=== PATIENT | female | born 1965 | race Caucasian/White ===

== ENCOUNTER → 2018-06-01 | Outpatient (CLI) | payer MEDICARE, BC ==
[2015-03-13 16:20] VITALS: BP 151/89
[~2018-06-01] MED LIST: ACET500T68 PO; ALBU2.5V14 NEB; ALBU6.7H IH; ALPR0.5T PO; ALPR1TAB2 PO; AMIT50TA PO; BUTA-14 PO; CHOL500045 PO; D-ME118S2 PO; ESTR0.5T PO; HYDR25TA9 PO; IBUP600T16 PO; LEVO50TA5 PO; LIDO700A4 TP; MOME17SP NS; OLME1TAB25 PO; PREG75CA PO; TRAM50TA PO; [UNRECOGNIZED DRUG - OTHER]
--- NOTE | 2018-06-02 10:47 | RAD ---
DATE: 06/01/2018 EXAM: MAMMO HIEU SCREENING BILATERAL HISTORY: Routine screening COMPARISON: 04/23/2016 This study was interpreted with the benefit of Computerized Aided Detection (CAD). Breast Density: SCATTERED The breast parenchyma shows scattered fibroglandular densities. Breast parenchyma level B. FINDINGS: 2-D and 3-D tomosynthesis imaging was performed in CC and MLO projections. No new or enlarging breast densities are seen. No suspicious microcalcifications are evident. IMPRESSION: Stable mammograms without evidence of malignancy. BI-RADS CATEGORY: 1 NEGATIVE RECOMMENDED FOLLOW-UP: 12M 12 MONTH FOLLOW-UP PQRS compliance statement: Patient information was entered into a reminder system with a target due date for the next mammogram. Mammography is a sensitive method for finding small breast cancers, but it does not detect them all and is not a substitute for careful clinical examination. A negative mammogram does not negate a clinically suspicious finding and should not result in delay in biopsying a clinically suspicious abnormality. "Our facility is accredited by the [employer] Mammography Program."
== END | disposition home or self-care (01) ==
LOC: MAMMO 14:20
PROVIDERS: ATTEND Family Medicine
DX: Z12.31 Encounter for screening mammogram for malignant neoplasm of breast (principal)
CPT/HCPCS: 77063; 77067

== ENCOUNTER → 2019-05-23 | Outpatient (CLI) | payer MEDICARE, BC ==
[2015-03-13 16:20] VITALS: BP 151/89
[~2019-05-23] MED LIST changes: +ALBU2.5V8 IH; -ALBU6.7H IH; -D-ME118S2 PO; +HYDR-2145 PO; -HYDR25TA9 PO; +PROM118S9 PO
--- NOTE | 2019-05-23 17:15 | RAD ---
EXAM: Abdomen and pelvis CT without intravenous contrast. HISTORY: Flank pain. TECHNIQUE: Computed tomographic images of the abdomen and pelvis were obtained without contrast. Multiplanar reformatting was performed. *One or more of the following individualized dose reduction techniques were utilized for this examination: 1. Automated exposure control. 2. Adjustment of the mA and/or kV according to patient size. 3. Use of iterative reconstruction technique. COMPARISON: 10/09/2013. FINDINGS: Evaluation of the lower thorax demonstrates posterior dependent and basilar atelectasis. There is no infiltrate or pleural effusion. The heart is normal in size. There is hepatomegaly and hepatic steatosis. No focal hepatic lesion is seen on this noncontrast exam. The gallbladder is surgically absent. The pancreas is unremarkable. The spleen is mildly enlarged. The adrenal glands are unremarkable. There are small suspected left renal parapelvic cysts. There is no hydronephrosis or evidence of nephroureterolithiasis. The bladder is empty. The uterus is surgically absent. There is no appendicitis. There is no bowel obstruction. There is a 1.4 cm soft tissue nodule with slight surrounding fatty stranding within the left lower quadrant adjacent to the descending-sigmoid colon junction. There is no adjacent colonic wall thickening. This may be due to the sequela of prior epiploic appendagitis or fat infarction. There is no suspicious osseous lesion. There are mild chronic compression deformities involving the lower thoracic vertebral levels. There is no acute osseous finding. IMPRESSION: 1. No evidence of nephroureterolithiasis or obstructive uropathy. There are small suspected left renal parapelvic cysts. 2. Hepatomegaly and hepatic steatosis. There is also mild enlargement of the spleen which may be within normal limits for patient body habitus. 3. 1.4 cm soft tissue nodule adjacent to the descending-sigmoid colon junction, possibly due to the sequela of prior epiploic appendagitis or fat infarction. There is no adjacent colonic wall thickening. The imaging appearance does not favor a lymph node. Electronically signed by: Sheyla Hernandez MD (05/23/2019 5:12 PM) [place] [id number]
== END | disposition home or self-care (01) ==
LOC: CT 16:41
PROVIDERS: ATTEND Family Medicine
DX: K76.0 Fatty (change of) liver, not elsewhere classified (principal); R16.1 Splenomegaly, not elsewhere classified; N94.89 Other specified conditions associated with female genital organs and menstrual cycle; K76.89 Other specified diseases of liver; J98.11 Atelectasis; M43.8X4 Other specified deforming dorsopathies, thoracic region; M54.5 Low back pain
CPT/HCPCS: 74176

== ENCOUNTER 2020-07-09 21:43 | Inpatient (IN) | payer MEDICARE, BC ==
[~2020-07-09] VITALS: Ht 160 cm; Wt 130.9 kg
[~2020-07-09 21:43] MED LIST changes: +PROM118S10 PO; -PROM118S9 PO
[2020-07-09 22:28] LABS: BASO % 0 % (0-3); EOS % 0 % (0-3); HEMOGLOBIN 13.5 g/dL (12.0-15.5); LYMPH # 0.6 x10^3/uL (1.0-4.8); LYMPH % 6 % (24-48); MEAN CORPUSCULAR HEMOGLOBIN 32 pg (25-35); MEAN CORPUSCULAR HGB CONC 34 g/dL (31-37); MEAN CORPUSCULAR VOLUME 94 fL (79-100); MONO # 0.4 x10^3/uL (0.0-1.1); MONO % 4 % (0-9); NEUT # 8.6 x10^3uL (1.8-7.7); NEUT % 90 % (31-73); PLATELET COUNT 221 x10^3/uL (140-400); RED BLOOD COUNT 4.28 x10^6/uL (3.50-5.40); RED CELL DISTRIBUTION WIDTH 13.3 % (11.5-14.5); WHITE BLOOD COUNT 9.5 x10^3/uL (4.0-11.0)
[2020-07-09] MEDS ORDERED: LORazepam 1 MG TABLET PO ONE (22:30)
[2020-07-09] MEDS ORDERED: IBUPROFEN 600 MG TABLET. PO ONE (22:30)
[2020-07-09] MEDS ORDERED: DEXAMETHASONE SOD PHOS 10 MG/ML VIAL. IV ONE (22:30)
--- NOTE | 2020-07-09 22:40 | RAD ---
Exam: Chest one view INDICATION: Shortness of breath TECHNIQUE: Frontal view of the chest Comparisons: None FINDINGS: The cardiomediastinal silhouette and pulmonary vessels are within normal limits. Patchy bilateral airspace disease. No pleural effusion. IMPRESSION: Patchy bilateral airspace disease may relate to pulmonary edema. Infectious process is difficult to severe Electronically signed by: Missael Kimball MD (07/09/2020 10:37 PM) [facility]
[2020-07-09 22:43] LABS: ALBUMIN 2.9 g/dL (3.4-5.0); ALBUMIN/GLOBULIN RATIO 0.6 (1.0-1.7); CALCIUM 8.9 mg/dL (8.5-10.1); TOTAL BILIRUBIN 0.2 mg/dL (0.2-1.0); TOTAL PROTEIN 7.6 g/dL (6.4-8.2)
[2020-07-09 22:47] LABS: POTASSIUM 2.8 mmol/L (3.5-5.1)
[2020-07-09] MEDS ORDERED: guaiFENesin/CODEINE 100mg/10mg 5 ML LIQUID PO PRN (23:15)
[2020-07-09] MEDS ORDERED: IV NORMAL SALINE 50ML 50 ML ONE (23:39)
[2020-07-09] MEDS ORDERED: cefTRIAXone SODIUM 1 GM VIAL ONE (23:39)
--- NOTE | 2020-07-09 23:43 | PHYS DOC ---
Past History Past Medical History: Anxiety, Asthma, Bipolar, Migraines, Other Past Surgical History: Cholecystectomy, , Hysterectomy, Other Smoking: Non-smoker Alcohol Use: None Drug Use: None Adult General Chief Complaint Chief Complaint: SHORTNESS OF BREATH HPI HPI Patient is a 54-year-old female who presents to the emergency room complaining of severe shortness of breath and weakness. She was diagnosed with Covid last week and felt like she was getting better earlier in the week. She initially had cough and body aches. Over the last couple days she has developed worsening cough and fever. Today she developed weakness and was unable to get to the bathroom. She also felt like she could not breathe. She is having coughing fits but denies any vomiting. Review of Systems Review of Systems Complete ROS is negative unless otherwise documented in HPI Current Medications Current Medications Current Medications Medications (Trade) Dose Ordered Sig/Lobito Start Time Stop Time Status Last Admin Dose Admin Ceftriaxone Sodium 1 gm/ Sodium Chloride 50 ml @ 100 mls/hr 1X ONCE 07/09/20 22:30 07/09/20 22:59 DC Dexamethasone Sodium Phosphate (Decadron) 10 mg 1X ONCE 07/09/20 22:30 07/09/20 22:31 DC Guaifenesin (Robitussin) 300 mg 1X ONCE 07/09/20 23:45 07/09/20 23:46 UNV Guaifenesin/ Codeine Phosphate (Robitussin Ac) 5 ml PRN Q6HRS PRN 07/09/20 23:15 Ibuprofen (Motrin) 600 mg 1X ONCE 07/09/20 22:30 07/09/20 22:31 DC Lorazepam (Ativan) 1 mg 1X ONCE 07/09/20 22:30 07/09/20 22:31 DC Allergies Allergies Allergies Coded Allergies Type Severity Reaction Last Updated Verified codeine Allergy Severe Nausea and Vomiting 04/28/14 Yes morphine Allergy Severe Nausea and Vomiting 04/28/14 Yes Oxycodone Allergy Mild 04/28/14 Yes Physical Exam Physical Exam General: Awake, alert, mild distress well Nourished, well hydrated. Cooperative HEENT: Atraumatic, EOMI, PERRL, airway patent, moist oral mucosa Neck: Supple, trachea midline Respiratory: Diffuse crackles, increased work of breathing, tachypnea CV: RRR, no murmur, cap refill <2 GI: Soft, nondistended, nontender, no masses MSK: No obvious deformities Skin: Warm, dry, intact Neuro: A&O x3, speech NL, sensory and motor grossly intact, no focal deficits Psych: Normal affect, normal mood, not suicidal or homicidal Current Patient Data Vital Signs Vital Signs Date Time Temp Pulse Resp B/P (MAP) Pulse Ox O2 Delivery O2 Flow Rate FiO2 07/09/20 21:55 101.5 94 16 136/70 (92) 90 Room Air Lab Results Laboratory Tests Test 07/09/20 22:09 White Blood Count 9.5 x10^3/uL (4.0-11.0) Red Blood Count 4.28 x10^6/uL (3.50-5.40) Hemoglobin 13.5 g/dL (12.0-15.5) Hematocrit 40.0 % (36.0-47.0) Mean Corpuscular Volume 94 fL (79-100) Mean Corpuscular Hemoglobin 32 pg (25-35) Mean Corpuscular Hemoglobin Concent 34 g/dL (31-37) Red Cell Distribution Width 13.3 % (11.5-14.5) Platelet Count 221 x10^3/uL (140-400) Neutrophils (%) (Auto) 90 % (31-73) H Lymphocytes (%) (Auto) 6 % (24-48) L Monocytes (%) (Auto) 4 % (0-9) Eosinophils (%) (Auto) 0 % (0-3) Basophils (%) (Auto) 0 % (0-3) Neutrophils # (Auto) 8.6 x10^3uL (1.8-7.7) H Lymphocytes # (Auto) 0.6 x10^3/uL (1.0-4.8) L Monocytes # (Auto) 0.4 x10^3/uL (0.0-1.1) Eosinophils # (Auto) 0.0 x10^3/uL (0.0-0.7) Basophils # (Auto) 0.0 x10^3/uL (0.0-0.2) Sodium Level 132 mmol/L (136-145) L Potassium Level 2.8 mmol/L (3.5-5.1) *L Chloride Level 95 mmol/L (98-107) L Carbon Dioxide Level 28 mmol/L (21-32) Anion Gap 9 (6-14) Blood Urea Nitrogen 17 mg/dL (7-20) Creatinine 1.0 mg/dL (0.6-1.0) Estimated GFR (Cockcroft-Gault) 58.0 BUN/Creatinine Ratio 17 (6-20) Glucose Level 315 mg/dL (70-99) H Lactic Acid Level 3.1 mmol/L (0.4-2.0) H Calcium Level 8.9 mg/dL (8.5-10.1) Total Bilirubin 0.2 mg/dL (0.2-1.0) Aspartate Amino Transferase (AST) 43 U/L (15-37) H Alanine Aminotransferase (ALT) 80 U/L (14-59) H Alkaline Phosphatase 70 U/L (46-116) Troponin I Quantitative < 0.017 ng/mL (0-0.055) Total Protein 7.6 g/dL (6.4-8.2) Albumin 2.9 g/dL (3.4-5.0) L Albumin/Globulin Ratio 0.6 (1.0-1.7) L EKG EKG [] Radiology/Procedures Radiology/Procedures [] Heart Score Risk Factors: Risk Factors: DM, Current or recent (<one month) smoker, HTN, HLP, family history of CAD, obesity. Risk Scores: Risk Factors: DM, Current or recent (<one month) smoker, HTN, HLP, family history of CAD, obesity. Course & Med Decision Making Course & Med Decision Making Pertinent Labs and Imaging studies reviewed. (See chart for details) Patient is a 54-year-old female who presents to the emergency room with shortness of breath and cough. At this time there is concern for the novel coronavirus 19. Patient's risk factors include age, obesity. Risk stratifying work-up was ordered including chest x-ray, d-dimer, CPK, CRP, LDH, troponin, ferritin, CBC, CMP. At this time, patients labs, vitals, and exam are significant for hypokalemia, mildly elevated LFTs. Due to patient's risk and clinical picture, they will need to be admitted at this time. IVFs will be limited due to concern for fluid overload in COVID-19 patients. Patient will be given empiric antibiotics due to infiltrates and risk of co-bacterial infection. Further treatment will be dictated by the inpatient team. Dragon Disclaimer Dragon Disclaimer This electronic medical record was generated, in whole or in part, using a voice recognition dictation system. Departure Departure: Impression: Primary Impression: COVID-19 Additional Impressions: Respiratory failure Anxiety Hypokalemia Disposition: ADMITTED INPT THIS HOSP Condition: STABLE Referrals: ISAÍAS SARMIENTO MD (PCP) Problem Qualifiers DALILA THORNTON MD Jul 09, 2020 23:43
[2020-07-09] MEDS ORDERED: guaiFENesin 300 MG/15 ML LIQUID PO ONE (23:45)
[2020-07-10] VITALS (9 sets, daily range): BP systolic 93–139; BP diastolic 55–81
[2020-07-10 00:33] LABS: BACTERIA,URINE 0 /HPF (0-FEW); BILIRUBIN,URINE NEG (NEG); CLARITY,URINE CLEAR; COLOR,URINE YELLOW; GLUCOSE,URINE >=1000 mg/dL (NEG); NITRITE,URINE NEG (NEG); RBC,URINE 0 /HPF (0-2); SQUAMOUS EPITHELIAL CELL,UR OCC /LPF; UROBILINOGEN,URINE 0.2 mg/dL (0.2 mg/dL); WBC,URINE OCC /HPF (0-4)
[2020-07-10] MEDS ORDERED: POTASSIUM CHLORIDE 20 MEQ TABLET.ER. PO ONE (09:15)
--- NOTE | 2020-07-10 11:48 | NUR ---
NSG NOTE; ADMISSION ADMIT TO ROOM 120 AT 0950 VIA CART ACCOMP BY EMS PERSONNEL C/O INCREASING SOA, COUGH, HEADACHE, AND WEAKNESS OVER THE LAST TWO DAYS, BUT HAS BEEN SICK X 7 DAYS HAD POSITIVE COVID 19 SWAB DONE ON TUESDAY, JUL 06, 2020. HER TWO DAUGHTERS HAVE ALSO TESTED POSITIVE. DR SARMIENTO CALLED FOR ORDERS.
[2020-07-10] MEDS ORDERED: ALBUTEROL SULFATE 8GM INHALER. INH PRN ×2 (13:15→18:00)
[2020-07-10] MEDS ORDERED: guaiFENesin DM 200MG/20MG 10 ML SYRUP PO PRN (13:15)
[2020-07-10] MEDS ORDERED: ELECTROLYTE (NON-ICU) PROTOCOL. MC PRN (13:15)
[2020-07-10] MEDS ORDERED: AZITHROMYCIN 250 MG TABLET. PO ONE (13:15)
[2020-07-10] MEDS ORDERED: ZOLPIDEM 5 MG TABLET. PO PRN (13:30)
[2020-07-10] MEDS ORDERED: MAG HYDROX/AL HYDROX/SIMETH 30 ML ORAL.SUSP PO PRN (13:30)
[2020-07-10] MEDS: BENZONATATE 100 MG CAPSULE. PO SCH ×2 (14:03→21:20)
[2020-07-10] MEDS: IV 1/2 NORMAL SALINE 1,000 ML IV SCH ×2 (14:03→19:12)
[2020-07-10] MEDS: ACETAMINOPHEN 500 MG TABLET PO PRN ×2 (14:03→19:12)
--- NOTE | 2020-07-10 14:38 | NUR ---
NSG NOTE; INCREASING OXYGEN NEED ON ROUNDS, SPOT O2 SAT OF 88% ON O2 3.5L NC. OXYGEN INCREASED TO 8L HIGH FLOW NC TO KEEP O2 SAT AT 92%
[2020-07-10] MEDS: DEXAMETHASONE SOD PHOS 4 MG/ML VIAL. IVP SCH ×3 (15:06→22:32)
--- NOTE | 2020-07-10 16:18 | NUR ---
NSG NOTE; POSITIVE COVID 19 TEST RESULTS PERFORMED ON 07/05/[address] SARMIENTO'S OFFICE AND ADDED TO PT'S CHART
[2020-07-10] MEDS ORDERED: traMADol 50 MG TABLET PO SCH (17:45)
[2020-07-10] MEDS ORDERED: BUTALB/APAP/CAFEIN 50/325/40MG TABLET. PO PRN (17:45)
[2020-07-10] MEDS ORDERED: ALBUTEROL SULFATE 2.5 MG/3 ML NEBU. IH SCH ×2 (17:45→21:00)
[2020-07-10] MEDS ORDERED: ELECTROLYTE (ICU) PROTOCOL. MC PRN (17:45)
[2020-07-10] MEDS ORDERED: ACETAMINOPHEN 500 MG TABLET PO SCH (17:45)
--- NOTE | 2020-07-10 17:46 | NUR ---
NSG NOTE; TRANSFER TO ICU PER DR SARMIENTO'S ORDERS AT 1730. REPORT GIVEN TO JOE JEONG. ALL PERSONAL ITEMS SENT WITH PT
--- NOTE | 2020-07-10 17:48 | NUR ---
NSG NOTE; REFUSAL OF FSBS PT REFUSED FSBS BEFORE DINNER STATING THAT SHE IS NOT A DIABETIC. SHE SAYS DR SARMIENTO RUNS TESTS EVERY FEW MONTHS AT THE OFFICE. I EXPLAINED TO HER THAT HER BS WAS [address] IN THE ED AND WHAT A NORMAL BS IS BUT SHE CONTINUED TO REFUSE. PT TRANSFERRED TO ICU 4 AT 1730 AND THAT NURSE WAS NOTIFIED AND THAT WE ARE AWAITING AN HGB A1C RESULT
[2020-07-10] MEDS ORDERED: DEXAMETHASONE SOD PHOS 4 MG/ML VIAL. IVP SCH (18:00)
[2020-07-10] MEDS ORDERED: ENOXAPARIN 40 MG/0.4 ML SYRINGE. SQ SCH (18:00)
--- NOTE | 2020-07-10 18:15 | NUR ---
Pt arrived on unit, soa, o2 sat 85% on 10L, placed call to [facility] for ABG orders. Cap refill >3 sec on bilat hands. 1849 ABG results called to [facility] orders to place on Bipap, repeat ABG in AM. Get approval for remdesivir and convalescent plasma. 1914 Orders for remdesivir and plasma approved per Laila.
[2020-07-10 18:46] LABS: BGAS PH 7.47 (7.35-7.45)
--- NOTE | 2020-07-10 18:48 | HP ---
ADMIT DATE: 07/10/2020 HISTORY OF PRESENT ILLNESS: This 54-year-old female, positive for COVID, came in through the Emergency Room late last night. She had been seen in the office 2 or 3 days earlier and told to go to the hospital in the ER and at that time, she absolutely refused to go and wanted to try to stick it out at home. Again, she was warned at that time. In any case, she comes in to the Emergency Room with increased shortness of breath and in turn generalized weakness. She has several comorbidities including morbid obesity, BMI greater than 50 and the like age as well. The patient was admitted with acute respiratory distress, COVID-19 pneumonia and sepsis and severe hypokalemia of 2.8, on electrolyte replacement there. PAST MEDICAL HISTORY: Includes chronic headaches, pneumonia, sleep apnea, cholecystectomy, GERD, reproductive disorders, hysterectomy, psychiatric problems, bipolar, diphtheria vaccine, influenza vaccination, pneumococcal vaccination. ALLERGIES: ADVERSE REACTION TO CODEINE, HYDROCODONE, MORPHINE AND OXYCODONE. VACCINATION: For pneumococcal up-to-date. FAMILY HISTORY: Mother with diabetes and hypertension. MEDICATIONS: The patient's medications were reconciled in the chart and include albuterol inhaler, Benicar 40/25, ibuprofen 600, tramadol 50, Fioricet, Lyrica 75, amitriptyline 50, Xanax 1 mg, hydrochlorothiazide, Nasonex, estradiol, levothyroxine and vitamin D. SOCIAL HISTORY: The patient denies smoking, alcohol or drug use. She is a full code. REVIEW OF SYSTEMS: The patient just increasing shortness of breath. Denies chest pain. Denies any problems with nausea, vomiting, melena, hematochezia, hematemesis, but just feels ill and extremely short of breath. PHYSICAL EXAMINATION: VITAL SIGNS: The patient's blood pressure is 102/60, respiratory rate 22, pulse 66, presently afebrile. She had a temperature up to 101.5, oxygen saturation 91% on 9 liters. The patient will be probably placed on BiPAP and the like. GENERAL: The patient otherwise is short of breath. HEENT: Head was atraumatic, normocephalic. Eyes: PERRLA without jaundice. The mouth and throat were normal. NECK: Supple, no JVD, carotid bruits or thyromegaly. LUNGS: Diminished. Poor movement of air throughout. CARDIOVASCULAR: Regular sinus rhythm. ABDOMEN: Soft, nontender. No rebounding, no guarding. Positive bowel sounds, no hepatosplenomegaly was noted, but protuberant. EXTREMITIES: No clubbing, cyanosis. Trace edema. IMPRESSION: Sepsis, COVID-19 pneumonia, morbid obesity, severe respiratory distress, possible pulmonary edema, severe hypokalemia, severe protein malnutrition, hyperglycemia. PLAN: The patient to continue to be monitored carefully. She has been transferred to intensive care where she will be placed on probable BiPAP, placed on remdesivir as well as antibody serum. The patient otherwise will be on pneumatic compression devices as well as Lovenox, minimal continuation of her medications in lieu of her low blood pressure, may need to start her on fluids or even dobutamine depending on how she does here in the ICU itself in the next few hours if not less. ISAÍAS SARMIENTO MD DR: JOSE/jose david JOB#: [id number] / [id number]
[2020-07-10] MEDS: FAMOTIDINE 20 MG/2 ML VIAL IVP SCH (19:15)
[2020-07-10] MEDS ORDERED: IPRATRPIUM/ALBUTEROL 0.5/2.5MG 3 ML NEBU. NEB SCH (20:00)
[2020-07-10] MEDS ORDERED: REMDESIVIR LOAD in IV NORMAL SALINE 250ML TV IV ONE (20:00)
--- NOTE | 2020-07-10 20:45 | NUR ---
Pt refused glucose fingerstick check.
[2020-07-10] MEDS ORDERED: AMITRIPTYLINE HCL 50 MG TABLET PO SCH (21:00)
[2020-07-10] MEDS: PATCH REMOVAL. MC SCH (21:00)
[2020-07-10] MEDS: LACTOBACILLUS RHAMNOSUS GG 1 CAPSULE. PO SCH (21:20)
[2020-07-10] MEDS: IPRATROPIUM/ALBUTEROL 20/100mcg/INH INHALER. INH SCH (21:20)
[2020-07-10] MEDS: PREGABALIN 75 MG CAPSULE PO SCH (21:20)
[2020-07-10] MEDS: ALPRAZolam 0.5 MG TABLET PO SCH (21:20)
[2020-07-10] MEDS ORDERED: traMADol 50 MG TABLET PO PRN (21:30)
[2020-07-11] VITALS (18 sets, daily range): BP systolic 118–145; BP diastolic 66–89
[2020-07-11 00:11] LABS: HEMOGLOBIN A1C 7.4 % (4.8-5.6)
--- NOTE | 2020-07-11 00:32 | NUR ---
Pt desating to 88-89% on bipap. Called RT to notify.
[2020-07-11] MEDS: DEXAMETHASONE SOD PHOS 4 MG/ML VIAL. IVP SCH ×2 (04:42→11:32)
[2020-07-11] MEDS: IV 1/2 NORMAL SALINE 1,000 ML IV SCH (04:43)
--- NOTE | 2020-07-11 05:00 | NUR ---
Pt desating to 86%, called RT to notify.
[2020-07-11] MEDS ORDERED: LEVOTHYROXINE 50 MCG TABLET PO SCH (06:00)
--- NOTE | 2020-07-11 06:06 | NUR ---
Shift Note: Pt is a/o x4, anxious, BP and HR stable, pt did require several adjustments to the BIPAP settings to maintain sats >90%, rosario catheter draining clear yellow urine, pt denies the need for pain medications and refused glucose fingerstick (educated the patient on the use of steroids and the effect on glucose and healing, pt continued to refuse). Conv. Plasma ordered yesterday evening, have not received notification that it is available (pt has NOT signed the consent at this time and will require education).
[2020-07-11 06:22] LABS: BASO % 0 % (0-3); EOS % 0 % (0-3); HEMATOCRIT 40.8 % (36.0-47.0); HEMOGLOBIN 13.5 g/dL (12.0-15.5); LYMPH # 0.7 x10^3/uL (1.0-4.8); LYMPH % 7 % (24-48); MEAN CORPUSCULAR HEMOGLOBIN 32 pg (25-35); MEAN CORPUSCULAR HGB CONC 33 g/dL (31-37); MEAN CORPUSCULAR VOLUME 95 fL (79-100); MONO # 0.3 x10^3/uL (0.0-1.1); MONO % 3 % (0-9); NEUT # 8.1 x10^3uL (1.8-7.7); NEUT % 90 % (31-73); PLATELET COUNT 230 x10^3/uL (140-400); RED CELL DISTRIBUTION WIDTH 13.9 % (11.5-14.5); WHITE BLOOD COUNT 9.1 x10^3/uL (4.0-11.0)
[2020-07-11 06:33] LABS: CALCIUM 8.5 mg/dL (8.5-10.1); CREATININE 0.8 mg/dL (0.6-1.0)
[2020-07-11 07:34] LABS: BGAS PH 7.43 (7.35-7.45)
[2020-07-11] MEDS: ALPRAZolam 0.5 MG TABLET PO SCH (07:41)
[2020-07-11] MEDS: BENZONATATE 100 MG CAPSULE. PO SCH (07:41)
[2020-07-11] MEDS: PREGABALIN 75 MG CAPSULE PO SCH (07:57)
[2020-07-11] MEDS: FAMOTIDINE 20 MG/2 ML VIAL IVP SCH (07:58)
[2020-07-11] MEDS: LACTOBACILLUS RHAMNOSUS GG 1 CAPSULE. PO SCH (07:58)
[2020-07-11] MEDS ORDERED: CHOLECALCIFEROL (VITAMIN D3) 1,000 UNIT TABLET PO SCH (09:00)
[2020-07-11] MEDS ORDERED: AZITHROMYCIN 250 MG TABLET. PO SCH (09:00)
[2020-07-11] MEDS ORDERED: LIDOCAINE (700MG/PATCH) PATCH. TP SCH (09:00)
[2020-07-11] MEDS ORDERED: ZINC SULFATE 220 MG CAPSULE. PO SCH (09:00)
[2020-07-11] MEDS: IPRATROPIUM/ALBUTEROL 20/100mcg/INH INHALER. INH SCH ×2 (09:40→11:31)
--- NOTE | 2020-07-11 10:13 | RAD ---
EXAM: CHEST AP ONLY INDICATION: Reason: increased oxygen needs / Spl. Instructions: / History: . TECHNIQUE: Single view COMPARISON: Chest x-ray 07/09/2020 FINDINGS: Respiratory support device now partially overlapping the upper left chest The heart size is normal. The great vessels appear unremarkable. There is no hilar or mediastinal mass. Interval worsening of patchy bilateral airspace disease with lower lung volumes. There is no pleural effusion or pneumothorax. There are no significant osseous abnormalities. IMPRESSION: Worsening bilateral patchy airspace disease. Cannot exclude atypical pneumonia. Electronically signed by: Tiarra Ledezma MD (07/11/2020 10:10 AM) [id number]
[2020-07-11] MEDS ORDERED: IV NORMAL SALINE 500ML 500 ML IV PRN (10:15)
[2020-07-11] MEDS ORDERED: FUROSEMIDE 20 MG/2 ML VIAL IVP ONE (10:15)
[2020-07-11] MEDS ORDERED: ATROPINE 0.5 MG/5 ML DISP.SYRIN. IV PRN (10:15)
[2020-07-11] MEDS ORDERED: DEXMEDETOMIDINE 400 MCG in IV NORMAL SALINE 100ML 96 ML IV PRN (10:15)
--- NOTE | 2020-07-11 12:45 | NUR ---
Dr Melton request transfer, pt ABG and chest xray are worsening, SpO2 ranges between 84-88% on 100% FiO2. [facility] request nurse to consult [facility] wire straightening machine operator via tele med if possible. Nurse called Maria G BROOKS, she said [facility] do not have privileges, orders to intubate pt if not stable to transfer. ER doc called to intubate/assess need. ER DR spoke with Maria G BROOKS and determined pt okay to transfer. [facility] accepted patient for transfer, pt will be going to bed 107. Report given to ADENIKE Kern [facility]. Pt left 1725, no intubation on CPAP, and precedex gtt.
[2020-07-11] MEDS ORDERED: PIP/TAZO PER PHARMACY MC PRN (14:30)
[2020-07-11] MEDS ORDERED: PROPOFOL 100 ML IV ONE (15:54)
[2020-07-11] MEDS ORDERED: PROPOFOL 10,000 MCG/ML (100ML) VIAL IV ONE (16:00)
[2020-07-11] MEDS ORDERED: ETOMIDATE 40 MG/20 ML VIAL. ONE (16:00)
[2020-07-11] MEDS ORDERED: SUCCINYLCHOLINE 200 MG/10 ML VIAL. ONE ×2 (16:00→16:13)
[2020-07-11] MEDS ORDERED: PIPERACILLIN/TAZOBACTAM 3.375 GM in IV NORMAL SALINE 50ML 50 ML IV SCH (18:00)
[2020-07-11] MEDS ORDERED: REMDESIVIR 100mg in NORMAL SALINE 250ML X 4 DAYS IV SCH (20:00)
--- NOTE | 2020-07-12 18:09 | PN ---
DATE: SUBJECTIVE: A 54-year-old female who came in with acute exacerbation of respiratory failure with COVID-19 pneumonia. The patient had waited several days to come in as she was instructed to come in and then refused initially, but getting too shortness of breath and then was found to be in respiratory failure, presently on a BiPAP as she has deteriorated somewhat and pneumonia per chest x-ray has progressed and made worse. She has been tried to be transferred down to [place], waiting for a bed. Last blood gas, pH 7.43, pCO2 of 45, pO2 of 56, bicarbonate 30 on the high side, that is at 95% FiO2. OBJECTIVE: VITAL SIGNS: Otherwise, her blood pressure had been low, brought up with fluids, 118/73, respiratory rate 28, pulse anywhere from 80-65. Presently, temperature is low at 97. GENERAL: The patient is arousable, but very lethargic. Decreased mentation, on BiPAP. LUNGS: Diminished throughout. Poor movement of air. CARDIOVASCULAR: Regular sinus rhythm. ABDOMEN: Protuberant, soft, morbidly obese. EXTREMITIES: No clubbing, cyanosis, nor edema. She is being given additional medications to help her with her agitation and irritation. She was given dexmedetomidine to help her with her agitation. The patient otherwise is continuing on her Decadron, remdesivir protocol along with several other medications to help her fight off this increasing pneumonia as well as IV antibiotics of piperacillin, Levaquin and azithromycin. The patient otherwise is critically ill here in the ICU and as noted. IMPRESSION: Sepsis, COVID-19 pneumonia, respiratory failure, morbid obesity, possible pulmonary edema, severe hypokalemia, severe protein malnutrition, hyperglycemia, elevated liver enzymes, type 2 diabetes. The patient continues on IV remdesivir, IV antibiotic therapies, Decadron as well as other antibiotics as noted above. She is on BiPAP 9 cm to maintain her oxygen saturation of approximately 89% on BiPAP, CPAP. Blood pressure 140/82, respiratory rate 36, pulse 80, afebrile. She will be transferred down to [place] as soon as they have an ICU bed as she is critically ill here in the ICU itself. ISAÍAS SARMIENTO MD DR: JOSE/jose david JOB#: [id number] / [id number]
--- NOTE | 2020-07-14 09:18 | DS ---
DATE OF DISCHARGE: 07/11/2020 HOSPITAL COURSE: A 54-year-old female who came in after a week of being ill at home and refusing to come in. The patient was positive for COVID-19 and she was having some respiratory discomfort when she first came in. The patient had multiple risk factors including severe obesity, hypokalemia of 2.8. In any case, the patient was started on remdesivir, aggressive pulmonary toilet, BiPAP, placed on pneumatic compression devices as well as Lovenox. In any case, the patient was noted to be septic, also with possible pulmonary edema. The patient had severe protein malnutrition and hyperglycemia. The patient otherwise somewhat deteriorated and did not respond to the aggressive Decadron, remdesivir, antibiotic therapy that we provided here and she needed additional aggressive therapy. Her chest x-ray showed worsening bilateral patchy airspace disease and as a result of this, the patient was transferred down to [facility] for further evaluation and treatment. IMPRESSION: Sepsis, COVID-19 pneumonia, respiratory failure, morbid obesity, possible pulmonary edema, severe hypokalemia, severe protein malnutrition, hyperglycemia, elevated liver enzymes, type 2 diabetes, hypoxia, tachypnea. The patient was transferred down to [place] to their ICU for further evaluation and treatment. ISAÍAS SARMIENTO MD DR: JOSE/jose david JOB#: [id number] / [id number]
== END 2020-07-11 17:30 | disposition short-term general hospital (02) | DRG 871 ==
LOC: ER 21:43 → 1 SOUTH 07-10 08:50 → ICU 07-10 17:30
PROVIDERS: ADMIT Family Medicine; ATTEND Family Medicine
PROC: 5A09357 Assistance with Respiratory Ventilation, Less than 24 Consecutive Hours, Continuous Positive Airway Pressure (ICD-10-PCS; principal; 2020-07-10)
PROC: XW033E5 Introduction of Remdesivir Anti-infective into Peripheral Vein, Percutaneous Approach, New Technology Group 5 (ICD-10-PCS; 2020-07-10)
PROC: 5A09357 Assistance with Respiratory Ventilation, Less than 24 Consecutive Hours, Continuous Positive Airway Pressure (ICD-10-PCS; 2020-07-11)
DX: A41.89 Other specified sepsis (principal); U07.1 COVID-19; J12.89 Other viral pneumonia; E43 Unspecified severe protein-calorie malnutrition; J96.00 Acute respiratory failure, unspecified whether with hypoxia or hypercapnia; Z68.43 Body mass index [BMI] 50.0-59.9, adult; E66.01 Morbid (severe) obesity due to excess calories; J45.909 Unspecified asthma, uncomplicated; F41.9 Anxiety disorder, unspecified; K21.9 Gastro-esophageal reflux disease without esophagitis; E11.65 Type 2 diabetes mellitus with hyperglycemia; G43.909 Migraine, unspecified, not intractable, without status migrainosus; E87.6 Hypokalemia; Z90.710 Acquired absence of both cervix and uterus; Z90.49 Acquired absence of other specified parts of digestive tract; Z98.891 History of uterine scar from previous surgery; Z83.3 Family history of diabetes mellitus; Z82.49 Family history of ischemic heart disease and other diseases of the circulatory system; Z88.5 Allergy status to narcotic agent; G47.30 Sleep apnea, unspecified
CPT/HCPCS: 36415; 36600; 71045; 80048; 80053; 81001; 82803; 83036; 83605; 83735; 83880; 84484; 85025; 87040; 94660; 96374; 96375; J0330; J0456; J0696; J1100; J1650; J2704; J3490; J7030; J7050; J7613; 99285-25